=== PATIENT | female | born 1950 | race Caucasian/White ===

== ENCOUNTER 2018-01-20 00:41 | Observation (INO) ==
--- NOTE | 2018-01-20 10:38 | Internal Med History&Physical ---
Date of Encounter: 01/20/18 Time of Encounter: 09:00 Internal Medicine - H&P: HPI History of present illness: Ms. Encarnacion is a 67 year old female with history of CHF, COPD, DVT, GERD, thyroid disease and mild mitral valve insufficiency and pancreatic malignancy who presented with chest pressure like chest pain with exertion, 9/10 in intensity, radiating to left scapula associated with SOB with exertion, diaphoresis,palpations and cough. The patient was admitted for further evaluation and management of CP to R/o KIRTI. Past Med Surg Social Fam HX - Past Medical History Medical history: CHF, COPD, DVT, GERD, thyroid disease Additional medical history: Peptic ulcer. Pancreatitis and pancreatic cyst Psychiatric history: no psych history - Past Surgical History Additional surgical history: neck surgery - Social History Smoking Status: Never smoker Smokeless Tobacco Status: No Alcohol use: none Drug use: none - Family History Father Living Status: Cause of : Pancreatic Cancer Hx Family Cardiac Disorders: Yes Hx Family Cancer: Yes (Pancreatic) Mother Living Status: Hx Family Neurologic Disorders: Yes (Alzheimer's) Internal Medicine - H&P: Meds RX: Pantoprazole Sodium [Protonix] 20 mg PO DAILY #30 tab 06/19/16 [Rx] RX: Levothyroxine [Synthroid] 50 mcg PO 0630 01/19/18 [History] Allergy/AdvReac Type Severity Reaction Status Date / Time lisinopril Allergy Difficulty Verified 01/19/18 23:30 Breathing Penicillins Allergy Difficulty Verified 01/19/18 23:30 Breathing venom-honey bee Allergy Difficulty Verified 01/19/18 23:30 [bee venom (honey bee)] Breathing All Systems PM: A 10-system review of systems was performed and is negative for pertinent findings except as documented above in the HPI. - Constitutional Constitutional: no chills, no fever(s), no night sweats - Cardiovascular Cardiovascular ROS IM: chest pain, dyspnea, dyspnea on exertion, palpitations, no diaphoresis, no lightheadedness, no syncope - Respiratory Respiratory: cough, dyspnea, dyspnea on exertion, no wheezing, no excessive phlegm production - Gastrointestinal Gastrointestinal: no abdominal pain, no diarrhea, no hematemesis, no hemat ochezia, no melena, no nausea, no vomiting - Genitourinary Genitourinary: no change in urinary stream, no dysuria, no flank pain, no hematuria - Integumentary Integumentary IM: no rash, no unusual bruising - Constitutional Vitals: Temp Pulse Resp BP Pulse Ox 97.8 F 51 16 131/73 99 01/20/18 07:17 01/20/18 07:17 01/20/18 07:17 01/20/18 07:17 01/20/18 07:17 General appearance: Present: A&O X 3 Exam: As below - Head Head exam: Present: atraumatic, normocephalic - Neck Neck exam general surgery: Present: supple, trachea midline. Absent: lymphadenopathy - Respiratory Respiratory exam: Present: decreased breath sounds. Absent: accessory muscle use, rales, rhonchi, wheezes - Cardiovascular Cardiovascular exam: Present: RRR, +S1, +S2. Absent: diastolic murmur, gallop, rubs, systolic murmur - GI/Abdominal GI/Abdominal exam: Present: normal bowel sounds, soft, no peritoneal signs. Absent: distended, tenderness - Extremities Exam Extremities exam: Present: warm, radial pulses palpable and symmetrical. Absent: calf tenderness, cyanotic, pedal edema - Neurological Exam Neurological exam: Present: CN II-XII intact, oriented X3, no focal deficits. Absent: pronater drift, facial droop, speech deficit Internal Med - H&P Results - Labs CBC & Chem 7: 01/21/18 00:11 01/21/18 00:11 Labs: Cardiac Enzymes 01/20/18 Range/Units 08:29 Troponin I < 0.03 (< 0.04) ng/mL - Assessment and plan (1) Chest pain Status: Ruled-out Assessment and plan: - Chest pain DD *CAD *Muskuloskeletal CP - myofascial strain, costochondritis *GERD *Esophageal spasm PLAN: - cardiac enzymes x 2 q 8 hr - EKG now and in AM - ASA - O2 by NC to keep SpO2 greater than 92% - UA - Urine toxic screen - CBCD, BMP in AM - Fasting lipids - Tylenol 650 mg PO q 4-6 hr PRN headache - Home meds (check list) - Heparin 5000 U SQ BID - 2D Echo - Cardiology consult Qualifiers: Chest pain type: unspecified Qualified Code(s): R07.9 - Chest pain, unspecified (2) Hypothyroidism Status: Chronic Assessment and plan: We will continue home thyroxin Qualifiers: Hypothyroidism type: unspecified Qualified Code(s): E03.9 - Hypothyroidism, unspecified (3) GERD (gastroesophageal reflux disease) Status: Chronic Assessment and plan: We will continue PPIs Qualifiers: Esophagitis presence: esophagitis presence not specified Qualified Code(s): K21.9 - Gastro-esophageal reflux disease without esophagitis (4) COPD (chronic obstructive pulmonary disease) Status: Chronic Assessment and plan: We will continue home inhalers Qualifiers: COPD type: unspecified COPD Qualified Code(s): J44.9 - Chronic obstructive pulmonary disease, unspecified (5) Mitral valve insufficiency Status: Chronic Qualifiers: Cardiac valve disease etiology: etiology unspecified Qualified Code(s): I34.0 - Nonrheumatic mitral (valve) insufficiency (6) Pancreatic insufficiency Status: Chronic (7) DVT prophylaxis Status: Chronic - Time Spent With Patient Total time spent is greater than 50% in coordination of care (as documented) at patient's floor/unit and/or counseling patient:
[2018-01-20] MEDS ORDERED: Naloxone 0.4 MG/ML INJ IVP PRN (11:08)
--- NOTE | 2018-01-20 14:19 | Cardiology Consult Note ---
<Braydon Montes De Oca - Last Filed: 01/20/18 14:28> Date of Encounter: 01/20/18 Time of Encounter: 14:19 Assessment and Plan (1) Atypical chest pain Status: Acute Plan for chemical stress tomorrow. Patiet okay to eat today, but NPO midnight. Discussion w patient/family: The assessment and plan as outlined above was discussed with the patient and/or family members who expressed understanding and agreement. All questions were answered. Thank you for involving us in the care of your patient. Please call with any questions. History of Present Illness Consult date: 01/20/18 Consult reason: Chest Pain Chief complaint: [place] Pain History of present illness: Ms. Encarnacion is a 67 year old female here for chest pain with history of CHF, COPD, DVT, GERD, thyroid disease, slowing growing pancreatic malignancy. Patient was throwing firewood at 10 PM, after which she went inside her house and had chest and abdominal pain. Chest pain was described as crushing, rated 9/10, radiating to left scapula, reproducible with palpation of left scapulla, exertional, not at rest. Patient also has abdominal pain which was different then the abdominal pain that she experiences due to pancreatic malignancy. Patient also endorses SOB with exertion, diaphoresis, and chest palpations Sleeps sitting or with 3 pillows. Reports having fever and cough recently. Patient has history of heart chat in 2006 which showed no abnormalities. Had echo done in 2011 which showed mild mitral valve insufficiency which was not treated with surgery. Had stress test at [facility] in 2012 which was negative. Patient does not smoke or drink. Past Med Surg Social Fam HX - Past Medical History Medical history: CHF, COPD, DVT, GERD, thyroid disease Additional medical history: Peptic ulcer. Pancreatitis and pancreatic cyst Psychiatric history: no psych history - Past Surgical History Additional surgical history: neck surgery - Social History Smoking Status: Never smoker Smokeless Tobacco Status: No Alcohol use: none Drug use: none - Family History Father Living Status: Cause of : Pancreatic Cancer Hx Family Cardiac Disorders: Yes Hx Family Cancer: Yes (Pancreatic) Mother Living Status: Hx Family Neurologic Disorders: Yes (Alzheimer's) Medications and Allergies RX: Pantoprazole Sodium [Protonix] 20 mg PO DAILY #30 tab 06/19/16 [Rx] RX: Levothyroxine [Synthroid] 50 mcg PO 30 01/19/18 [History] Allergy/AdvReac Type Severity Reaction Status Date / Time lisinopril Allergy Difficulty Verified 01/19/18 23:30 Breathing Penicillins Allergy Difficulty Verified 01/19/18 23:30 Breathing venom-honey bee Allergy Difficulty Verified 01/19/18 23:30 [bee venom (honey bee)] Breathing All Systems Review: The remainder of the systems were reviewed and are negative - Constitutional Constitutional: fever(s), malaise - Respiratory Respiratory: cough, no dyspnea - Gastrointestinal Gastrointestinal: abdominal pain Physical Examination Vital Signs, Last 4 Hours Temp Pulse Resp BP Pulse Ox 01/20/18 11:46 98.2 F 56 16 151/77 98 General: Conversant HEENT: Atraumatic Neck: No JVD Cardiac: Reg Rate and Rhythm, Normal S1 and S2, Other (mitral valve murmur heard) Lungs: Normal Breath Sounds, No Wheeze, Rales, Rhonchi Neuro: Alert and responsive, No focal deficits noted Skin: No rashes noted on visualized skin Musculoskeletal: No Chest Wall Tenderness, Other (Tenderness upon palpation of left scapulla) Extremities: Normal Pulses Results Lab Results 01/20/18 01/20/18 08:29 12:22 Troponin I < 0.03 < 0.03 - EKG Interpretation EKG results cardiology: personally reviewed, other (Mild diffuse) Consult Discharge Plan - Plan Instructions: Chest Pain (DC), Chronic Obstructive Pulmonary Disease (DC) Referrals: Kei Parra DO [Resident] - 01/28/18 2:00 pm (In [facility] across from [facility]. [facility] Transportation will pick you up at 1:20pm at your home.) <Nery Aragon - Last Filed: 01/21/18 15:42> - Attending Attestation I examined this patient and my medical decision-making was reviewed with the Resident Physician. I agree with the documented findings, disposition and treatment plan as described except to the extent set forth below. 67-year-old female presents with atypical almost noncardiac type chest pain Noninvasive risk stratification with echocardiogram and chemical stress test to rule out structural heart abnormalities and ischemia Assessment and Plan (1) Chest pain Status: Acute Qualifiers: Chest pain type: unspecified Qualified Code(s): R07.9 - Chest pain, unspecified (2) DVT prophylaxis Status: Chronic Discussion w patient/family: The assessment and plan as outlined above was discussed with the patient and/or family members who expressed understanding and agreement. All questions were answered. Thank you for involving us in the care of your patient. Please call with any questions. History of Present Illness History of present illness: Ms. Encarnacion is a 67 year old female All Systems Review: The remainder of the systems were reviewed and are negative Results 01/21/18 00:11 01/21/18 00:11 Lab Results 01/20/18 01/21/18 01/21/18 18:33 00:11 00:11 WBC 7.7 Hgb 11.7 Hct 35.4 Plt Count 263 Sodium Potassium Chloride Carbon Dioxide BUN Creatinine Glucose Calcium Magnesium Total Bilirubin AST ALT Alkaline Phosphatase Troponin I < 0.03 < 0.03 01/21/18 00:11 WBC Hgb Hct Plt Count Sodium 141 Potassium 3.7 Chloride 109 H Carbon Dioxide 26 BUN 9 Creatinine 0.73 Glucose 91 Calcium 9.4 Magnesium 2.1 Total Bilirubin 0.3 AST 14 ALT 10 Alkaline Phosphatase 88 Troponin I
[2018-01-20] MEDS ORDERED: Perflutren Lipid Microsphere 1.3 ML in 0.9 % Sodium Chloride 8.7 ML IVP ONE (21:15)
[2018-01-21 01:08] LABS: Basophils # 0.1 K/mcL (0.0-0.2); Basophils % 0.7 %; Eosinophils # 0.2 K/mcL (0.0-0.6); Hematocrit 35.4 % (35.3-44.9); Hemoglobin 11.7 g/dL (11.5-15.4); Immature Granulocytes % 0.1 % (0-4); Lymphocytes # 3.6 K/mcL (0.6-4.6); Lymphocytes % 47.2 %; Mean Corpuscular HGB Conc 33.1 g/dL (31.6-35.5); Mean Corpuscular Hemoglobin 31.2 pg (28.0-33.3); Mean Corpuscular Volume 94.4 fL (83.0-100.0); Monocytes # 0.8 K/mcL (0.0-1.3); Monocytes % 10.2 %; Neutrophils # 3.1 K/mcL (1.6-8.9); Platelet Count 263 K/mcL (140-400); Red Blood Count 3.75 M/mcL (3.82-4.97); Red Cell Distribution Width 13.3 % (11.5-14.5); Segmented Neutrophils % 39.8 %
[2018-01-21 01:26] LABS: Alanine Aminotransferase 10 Units/L (7-52); Albumin 3.6 g/dL (3.5-5.7); Albumin/Globulin Ratio 1.4 (1.1-2.2); Alkaline Phosphatase 88 Units/L (34-104); Aspartate Amino Transferase 14 Units/L (13-39); BUN/Creatinine Ratio 12 (6-26); Bilirubin,Total 0.3 mg/dL (0.3-1.0); Blood Urea Nitrogen 9 mg/dL (8-23); Calcium 9.4 mg/dL (8.6-10.3); Carbon Dioxide 26 mEq/L (23-29); Chloride 109 mEq/L (98-107); Globulin 2.6 g/dL (2.4-3.5); Glucose 91 mg/dL (70-105); Magnesium 2.1 mg/dL (1.6-2.6); Osmolality,Calculated 290 (280-300); Phosphorous 3.3 mg/dL (2.7-4.5); Potassium 3.7 mEq/L (3.5-5.1); Sodium 141 mEq/L (136-145); Total Protein 6.2 g/dL (6.4-8.9); eGFR For Non-African Americans > 60 (> 60)
[2018-01-21 03:36] VITALS: BP 125/71
[2018-01-21] MEDS ORDERED: Regadenoson 0.4 MG/5 ML SYRINGE IVP ONE (05:41)
[2018-01-21] MEDS ORDERED: NON-FORMULARY MEDICATION 1 EACH EACH (Pantoprazole Sodium [Protonix] 20 MG) PO SCH (09:00)
--- NOTE | 2018-01-21 11:24 | Cardiology Progress Note ---
<Braydon Montes De Oca T - Last Filed: 01/21/18 11:03> Date of Encounter: 01/21/18 Time of Encounter: 10:20 Assessment and Plan (1) Atypical chest pain Status: Acute Stress test negative for ischemia, negative EKG. Echo shows normal wall motion, LVEF 60%, moderate LV diastolic dysfunction, mild mitral regurgitation. No acute pathology explaining chest pain. Cardiology okay to sign off at this time, patient does not need to follow up with cardiology. Discussion w patient/family: The assessment and plan as outlined above was discussed with the patient and/or family members who expressed understanding and agreement. All questions were answered. Thank you for involving us in the care of your patient. Please call with any questions. Subjective Principal diagnosis: Atypical Chest Pain Interval history: 01/20/18 Patient appeared comfortable. Waiting for results of echo and chemical stress test. 01/21/18 Patient reports no acute changes in CP or back pain severity. Does no t lower back pain most likely related to bed positioning. Patient denies new onset palpitations, diaphoresis, nausea, SOB. Patient is comfortable. Objective General: Conversant HEENT: Atraumatic Neck: No JVD Cardiac: Reg Rate and Rhythm, Normal S1 and S2, No Murmur Lungs: Normal Breath Sounds, No Wheeze, Rales, Rhonchi Neuro: Alert and responsive, No focal deficits noted Skin: No rashes noted on visualized skin Musculoskeletal: No Chest Wall Tenderness Extremities: No Clubbing, No Cyanosis, Normal Pulses Results 01/21/18 00:11 01/21/18 00:11 Lab Results 01/20/18 01/20/18 01/21/18 12:22 18:33 00:11 WBC Hgb Hct Plt Count Sodium Potassium Chloride Carbon Dioxide BUN Creatinine Glucose Calcium Magnesium Total Bilirubin AST ALT Alkaline Phosphatase Troponin I < 0.03 < 0.03 < 0.03 01/21/18 01/21/18 00:11 00:11 WBC 7.7 Hgb 11.7 Hct 35.4 Plt Count 263 Sodium 141 Potassium 3.7 Chloride 109 H Carbon Dioxide 26 BUN 9 Creatinine 0.73 Glucose 91 Calcium 9.4 Magnesium 2.1 Total Bilirubin 0.3 AST 14 ALT 10 Alkaline Phosphatase 88 Troponin I - Imaging and Cardiology Stress Test: report reviewed Echo: report reviewed Consult Discharge Plan - Plan Instructions: Chest Pain (DC), Chronic Obstructive Pulmonary Disease (DC) Referrals: Kei Parra DO [Resident] - 01/28/18 2:00 pm (In [facility] across from [facility]. [facility] Transportation will pick you up at 1:20pm at your home.) <Nery Aragon - Last Filed: 01/21/18 15:31> Assessment and Plan (1) Chest pain Status: Acute 67-year-old female presents with atypical type chest pain. Nuclear stress test is unremarkable with no ischemia and a preserved ejection fraction. Echocardiogram also shows no major valvular abnormalities and a preserved ejection fraction. No further cardiac testing at this time Qualifiers: Chest pain type: unspecified Qualified Code(s): R07.9 - Chest pain, unspecified (2) DVT prophylaxis Status: Chronic Discussion w patient/family: The assessment and plan as outlined above was discussed with the patient and/or family members who expressed understanding and agreement. All questions were answered. Thank you for involving us in the care of your patient. Please call with any questions. Results 01/21/18 00:11 01/21/18 00:11 Lab Results 01/20/18 01/21/18 01/21/18 18:33 00:11 00:11 WBC 7.7 Hgb 11.7 Hct 35.4 Plt Count 263 Sodium Potassium Chloride Carbon Dioxide BUN Creatinine Glucose Calcium Magnesium Total Bilirubin AST ALT Alkaline Phosphatase Troponin I < 0.03 < 0.03 01/21/18 00:11 WBC Hgb Hct Plt Count Sodium 141 Potassium 3.7 Chloride 109 H Carbon Dioxide 26 BUN 9 Creatinine 0.73 Glucose 91 Calcium 9.4 Magnesium 2.1 Total Bilirubin 0.3 AST 14 ALT 10 Alkaline Phosphatase 88 Troponin I
--- NOTE | 2018-01-21 11:28 | Discharge Summary ---
- NOTES TO OUTPATIENT PROVIDER Notes to Outpatient Provider: Follow with your PCP within a week of hospital discharge. Orders not resulted at time of discharge: Pending orders 01/21/18 00:01 NM laura perf SPECT multi [NM] Routine Date of Encounter: 01/21/18 Time of Encounter: 11:15 - Discharge Diagnosis (1) Chest pain Priority: Primary Status: Ruled-out Qualifiers: Chest pain type: unspecified Qualified Code(s): R07.9 - Chest pain, unspecified (2) Hypothyroidism Priority: Secondary Status: Chronic Qualifiers: Hypothyroidism type: unspecified Qualified Code(s): E03.9 - Hypothyroidism, unspecified (3) GERD (gastroesophageal reflux disease) Priority: Secondary Status: Chronic Qualifiers: Esophagitis presence: esophagitis presence not specified Qualified Code(s): K21.9 - Gastro-esophageal reflux disease without esophagitis (4) COPD (chronic obstructive pulmonary disease) Priority: Secondary Status: Chronic Qualifiers: COPD type: unspecified COPD Qualified Code(s): J44.9 - Chronic obstructive pulmonary disease, unspecified (5) Mitral valve insufficiency Priority: Secondary Status: Chronic Qualifiers: Cardiac valve disease etiology: etiology unspecified Qualified Code(s): I34.0 - Nonrheumatic mitral (valve) insufficiency (6) Pancreatic insufficiency Priority: Secondary Status: Chronic (7) DVT prophylaxis Priority: Secondary Status: Chronic Hospital course: Ms. Encarnacion is a 67 year old female past medical history of pancreatic insufficiency, osteoporosis, and hypothyroidism. Patient presented to the emergency room complaining of chest pain. Reports that during the day she was carrying some jarrett around her house and after finishing she developed chest pain. Denies shortness of breath, lightheadedness, dizziness or palpitation. Ischemic workup done during these admission, serial troponins negative and a nuclear stress test perfusion imaging was negative for ischemia or infarct. Discussed with cardiology who agree on discharging the patient and recommended outpatient cardiology follow-up. - Time Spent with Patient Total time spent providing and/or coordinating discharge services: Less than 30 minutes - Discharge Medications Home Medications: Pantoprazole Sodium [Protonix] 20 mg PO DAILY #30 tab 06/19/16 [Rx] Levothyroxine [Synthroid] 50 mcg PO 0630 01/19/18 [History] Allergies/Adverse Reactions: Allergy/AdvReac Type Severity Reaction Status Date / Time lisinopril Allergy Difficulty Verified 01/19/18 23:30 Breathing Penicillins Allergy Difficulty Verified 01/19/18 23:30 Breathing venom-honey bee Allergy Difficulty Verified 01/19/18 23:30 [bee venom (honey bee)] Breathing Date of admission: 01/20/18 02:03 Primary care physician: PCP NONE Consults: 01/20/18 13:17 Consult to Cardiology [CONS] Routine Comment: Consulting Provider: [facility] [place] Reason for Consult: EKG Changes Call Completed: Yes - Constitutional Vitals: Temp Pulse Resp BP Pulse Ox 97.4 F L 83 16 125/71 97 01/21/18 03:35 01/21/18 03:35 01/21/18 03:35 01/21/18 03:35 01/21/18 03:35 General appearance: Present: A&O X 3 Exam: General: Alert and oriented 4. In no acute distress. Skin: Normal color, no rash, no lesions. HEENT: EOM, pupils equal, round and reactive. Cardiovascular: RRR, Normal S1 & S2, no rubs, murmurs or gallops. Lungs: Clear to auscultation bilaterally, no wheezes or crackles. Abdomen: Obese, Soft, non-tender, no rigidity. NABS in all 4 quadrants. Extremities: No deformity, no edema or tenderness, no joint swelling or clubbing. Neurological: Normal cognition and motor skills. Rest of the physical exam is non contributory - Patient Status Disposition: Home, Self-Care Condition: Good Functional capacity at discharge: independent ambulation Overall status at discharge: patient is back to baseline - Discharge Instructions Follow Up With: Kei Parra DO [Resident] - 01/28/18 2:00 pm (In [facility] across from [facility]. [facility] Transportation will pick you up at 1:20pm at your home.) - Diet and Activity Activity: resume usual activities as tolerated Diet: advance to your usual diet
--- NOTE | 2018-01-24 15:51 | Electrocardiograph Report ---
[place] [id number] Test Date: 2018-01-20 Pat Name: Sisi Encarnacion Department: 113 Room: 3B Gender: F Director Industrial Nursing: : 1950 Requested By: Margoth Watters Order Number: [id number] Reading MD: Merrick Titus Measurements Intervals [place] Rate: 49 P: 47 SD: 163 QRS: -10 QRSD: 85 T: 12 QT: 440 QTc: 411 Interpretive Statements SINUS BRADYCARDIA LOW QRS VOLTAGE IN PRECORDIAL LEADS NONSPECIFIC ST-T CHANGES Electronically Signed On 01-24-2018 15:49:57 EDT by Merrick Titus
== END 2018-01-21 13:28 | disposition home or self-care (01) ==
LOC: 3BNU
PROVIDERS: ADMIT Family Medicine; ATTEND Family Medicine